=== PATIENT | female | born 1955 | race Caucasian/White ===

== ENCOUNTER 2016-05-31 07:39 | Emergency (ER) | payer OTHER ==
[2016-05-31] MEDS ORDERED: AMOXICILLIN 500 MG CAPSULE PO ONE (07:48)
--- NOTE | 2016-05-31 07:55 | PDOC ---
Ear Complaints HPI - General Chief Complaint: Ear Problem / Injury Stated Complaint: right ear pain Date Seen by Provider: 05/31/16 Time Seen by Provider: 07:49 Source: POSITIVE: Patient Exam Limitations: POSITIVE: No limitations Nurse's Notes Reviewed & Considered: Yes - History of Present Illness Initial Comments: Patient comes in today chief complaint of ear pressure and pain. Symptoms started yesterday with pressure in her right ear. She can place her hand below her ear at the angle of her jaw on this seems to relieve some of the pressure that she feels. Initially she was unsure of whether her ear was giving her problems were she was having dental pain. Symptoms seem to be coalescing around her ear. She denies any fever chills sweats, nausea vomiting diarrhea. She has had increasing sinus pressure with a runny nose recently. Location: Right Ear Timing: REPORTS: Abrupt Severity: Mild Quality: REPORTS: "Pain" Context: REPORTS: Other (Sinus pressure and runny netters) Modifying Factors: REPORTS: Movement Associated Symptoms: REPORTS: Dull Earache, Jaw Pain Similar Symptoms Previously: No Recent Care Received: REPORTS: Denies Any Prior Injuries Related to Current Complaint?: No - Patient Home Medications Home Medications: Home Medications Cholecalciferol (Vitamin D3) [Vitamin D3] 1 cap PO QD #30 cap 08/07/15 Glucosamine HCl/MSM [Sm Glucosamine & MSM Tablet] 1 each PO QD tab 08/07/15 Ibuprofen 1 tab PO DAILY #30 tab 08/07/15 Multivitamin [Multi-Vitamin Daily] 1 each PO QD tab 08/07/15 Albuterol Sulfate [Proair Hfa] 1 - 2 puff INH Q4-6H #1 puff 10/17/15 Calcium Carbonate/Vitamin D3 [Calcium 600-Vit D3 200 Tablet] 2 tab PO QD tab - Patient Allergies Allergies/Adverse Reactions: Allergies Allergy/AdvReac Type Severity Reaction Status Date / Time diphenhydramine HCl AdvReac tremors Verified 05/31/16 07:45 [From Benadryl] Past Medical History - heen HEENT History: Denies History, Chipped or Loose Teeth Cardiovascular History: CHF Respiratory History: COPD, Emphysema Gastrointestinal History: Denies History Additional Genitourinary History: DIFFICULTY URINATING DUE TO VAGINAL CYST Endocrine History: Denies History Musculoskeletal History: Arthritis, Osteoporosis, Osteoarthritis Prosthesis or Implant: Yes (LOTTIE, RIGHT FEMUR) Neurological History: Denies History Blood Disorders: Denies History Psychiatric History: Depression History of Sexually Transmitted Diseases: No Cancer History: Denies History History of MDRO: No History of Other Communicable Diseases: No (VARICELLA) Alcohol Use: None Substance Use Type: None Previous Surgical History: Yes Type / Date of Surgery: GIFTY/ HYST/ RIGHT FEMUR FX WITH LOTTIE PLACEMENT/ UILATERAL OOPHORECTOMY/COLONOSCOPY Anesthesia Reactions: Yes Malignant Hyperthermia: No Significant Family History: Asthma, Heart disease, COPD, Diabetes ROS - Limitations ROS Limitations: No Limitations Constitution: REPORTS: Denies Symptoms Cardiovascular: REPORTS: Denies Cardiac Symptoms Respiratory: REPORTS: Denies Resp Symptoms Neurological: REPORTS: Denies Neuro Symptoms Gastrointestinal: REPORTS: Denies GI Symptoms Endocrine: REPORTS: Denies Symptoms Musculoskeletal: REPORTS: Denies MS Symptoms Genitourinary: REPORTS: Denies Symptoms Eyes: REPORTS: Denies Symptoms ENT: REPORTS: Earache, Congestion, Sore Throat Skin: REPORTS: Denies Skin Symptoms Lympathic: REPORTS: Denies Lympathic Symptoms Immunologic: POSITIVE: Denies Symptoms Psychiatric: POSITIVE: Denies Psych Symptoms Ear Complaint Exam - General Appearance General Appearance: POSITIVE: Alert, Cooperative, No Evidence of Trauma, Anxious - HEENT Head / Face: POSITIVE: Atraumatic, Normal Inspection, No Facial Swelling Eyes: POSITIVE: Inspection Normal, PERRL, EOM's Intact, Eyelids Uninjured, Conjunctivae Uninjured, Sclera Normal Ears: POSITIVE: Ears Normal Inspection, Auricle Normal, External Canal Normal, Bluging of TM Nose: POSITIVE: Inspection Normal, No Apparent Trauma, Nares Normal, No CSF Leak Oropharynx: POSITIVE: External Inspection Nml, Pharynx Inspect. Nml, Airway Intact, Voice Normal, Moist Mucous Membranes, No Oral Injury, Lips Normal, Gums Normal, No Drooling, No Thrush Dental: POSITIVE: Dental Caries - Respiratory Respiratory: POSITIVE: No Respiratory Distress - Abdomen Abdomen: Denies Tenderness: (All Quadrants) - Skin Skin: POSITIVE: Normal Color, No Skin Rash - Neurological / Psychological Neurological: POSITIVE: Affect Apporpriate, Oriented X3 Ear Complaints Progress - Patient's Progress Pain Medication Addressed: POSITIVE: No Status: POSITIVE: Improved MDM / ED Course: Patient was examined. Blood pressure was rechecked and had come down to 148/ 89. She received 1000 mg of amoxicillin. She is being discharged home in improved condition with instructions to follow up with her primary care physician. A prescription for amoxicillin 1000 mg by mouth 3 times a day for 10 days. Assessment: Sinusitis and otitis media. - Consult Counseled: POSITIVE: Patient, RE: DX, RE: Need for F/U Patient Care Time - Estimated PCT Patient Care Time (In Minutes): 15 Vital Signs - VS Reviewed Vital Signs Reviewed: Yes Discharge Clinical Impression: Otitis media, Sinusitis Discharge Disposition: Discharged to Home Condition: Fair Patient Instructions Given at Discharge: Otitis Media (ED), Rhinosinusitis (ED)
[2016-05-31 08:05] VITALS: RESP 16; TEMP 97.2
== END 2016-05-31 08:18 | disposition home or self-care (01) ==
LOC: ER 07:39
DX: H66.91 Otitis media, unspecified, right ear (principal); J01.90 Acute sinusitis, unspecified
CPT/HCPCS: 99282

== ENCOUNTER → 2016-07-12 | Outpatient (CLI) | payer OTHER ==
[2016-07-12 12:04] LABS: HEMATOCRIT 42.8 % (37.0-47.0); HEMOGLOBIN 13.7 g/dL (12.0-16.0); MEAN CORPUSCULAR HEMOGLOBIN 28.7 PG (27-31); MEAN CORPUSCULAR VOLUME 89.5 FL (81-99); MEAN PLATELET VOLUME 10.4 FL (7.4-12.2); RED BLOOD COUNT 4.78 10^6/uL (4.20-5.40)
[2016-07-12 12:17] LABS: BLOOD UREA NITROGEN 12 mg/dL (7-22); BUN/CREATININE RATIO 17.14 (6-20); CALCIUM 9.3 mg/dL (8.7-10.7); EST GLOMERULAR FILTRATION > 60 (>60 ml/min/1.73m(2)); SERUM ALBUMIN 3.6 g/dL (3.5-4.8)
== END ==
LOC: MOB LAB 08:47
PROVIDERS: ATTEND Student in an Organized Health Care Education/Training Program
DX: E55.9 Vitamin D deficiency, unspecified (principal); E66.01 Morbid (severe) obesity due to excess calories
CPT/HCPCS: 36415; 80053; 82306; 85027

== ENCOUNTER → 2016-10-10 | Outpatient (CLI) | payer OTHER ==
--- NOTE | 2016-10-11 11:15 | DI ---
RIGHT KNEE, 10/10/2016 8:24 AM: Clinical History: Right knee pain. Previous Exam: None at this facility. 4 views are submitted. The AP and tunnel projections are weight bearing views. There is no acute soft tissue, osseous, or joint abnormality. There is an intramedullary natalie in the femur. Moderately sever e to severe narrowing of the medial compartment is present. Reading: Degenerative arthritic change of moderate to moderately severe degree in the medial compartment.
== END ==
LOC: ORTHO 09:27
PROVIDERS: ATTEND Physician Assistant
DX: M25.561 Pain in right knee (principal); M17.11 Unilateral primary osteoarthritis, right knee; M70.61 Trochanteric bursitis, right hip; F17.200 Nicotine dependence, unspecified, uncomplicated
CPT/HCPCS: 73564